=== PATIENT | male | born 1945 | race Caucasian/White ===

== ENCOUNTER 2016-08-27 12:44 | Day surgery (SDC) | payer OTHER ==
[~2016-08-27] VITALS: Ht 185.4 cm; Wt 113.4 kg
[~2016-08-27 12:44] MED LIST: AZU500 PO; GABA-504 PO; HYDR200T5 PO; Lactated Ringer's 1,000 ML IV ONE; METH2.5T PO; OMEP20CA11 PO; OXYC-474 PO; VENL100T3 PO
[2016-08-27] MEDS ORDERED: Phenylephrine/NS-PF 100 mCg/mL 5 mL Syringe IVPUSH ONE (12:45)
[2016-08-27] MEDS ORDERED: Propofol 10,000 mCg/mL 20 mL Inj ONE (12:45)
[2016-08-27 12:58] VITALS: BP 120/77; PULSE 66; RESP 17; O2SAT 98
[2016-08-27] MEDS ORDERED: PRD5T PO (13:02)
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
[2016-08-27 14:08] VITALS: BP 80/43; PULSE 58; RESP 14; O2SAT 100
[2016-08-27 14:14] VITALS: BP 89/51; PULSE 57; RESP 12; O2SAT 98
[2016-08-27 14:21] VITALS: BP 98/63; PULSE 59; RESP 14; O2SAT 97
--- NOTE | 2016-08-27 14:35 | ENDO ---
[address] [address] ENDOSCOPY PROCEDURE PATIENT: FLORENTIN HURST : 1945 MR#: [id number] ADMIT: 08/27/2016 JOB ID: [id number] DATE OF SERVICE: 08/27/2016 TYPE OF OPERATION: Colonoscopy, biopsy. PREOPERATIVE DIAGNOSIS(ES): Family history of colon cancer. POSTOPERATIVE DIAGNOSIS(ES): 1. Suboptimal prep. 2. There was a 3 mm ascending colon polyp, removed by cold biopsy forceps. ANESTHESIA: Monitored anesthesia care. COMPLICATIONS: None. BLOOD LOSS: Minimal. DESCRIPTION OF PROCEDURE: After risks and benefits explained to the patient, informed consent was obtained. After anesthesia administered, colonoscope was then inserted from the rectum to the cecum. Mucosa carefully examined. Prep of the patient was suboptimal. After procedure, the scope was withdrawn and procedure terminated. FINDINGS: Upon inspection of the anus, no masses, hemorrhoids, ulcers, fissures that were seen. Throughout the entire examination, there was scattered liquid stool that was seen throughout the entire colon. Tremendous suction was done during this time. There was also a 3 mm ascending colon polyp, removed by cold biopsy forceps. Retroflexion was normal. IMPRESSION: 1. Suboptimal prep. 2. A 3 mm ascending colon polyp, removed by cold biopsy forceps. RECOMMENDATIONS: Await pathology results. Repeat colonoscopy in five years given family history of colon cancer. Follow up in GI clinic as needed.
--- NOTE | 2016-08-27 15:05 | PCM.ANEP1 ---
Post Anesthesia PACU Phase 1 Assessment Vital Signs Vital Signs Date Time Temp Pulse Resp B/P Pulse Ox O2 Delivery O2 Flow Rate FiO2 08/27/16 14:21 59 14 98/63 97 Room Air 08/27/16 14:14 57 12 89/51 98 Room Air 08/27/16 14:08 58 14 80/43 100 Room Air 08/27/16 12:58 66 17 120/77 98 Room Air Anesthetic Administered: MAC Level of Alertness: Sleepy, easy to arouse Pain: No Nausea or Vomiting: No CV Function & Hydration Stable: Yes Airway Device: Lungs: Clear to Auscultation PACU Phase 2 Assessment Patient Instructions Provided: N/A Ray Payne MD Aug 27, 2016 15:05
--- NOTE | 2016-08-29 15:40 | PATH ---
SURGICAL PATHOLOGY Attending Physician:Winston Samuels MD CASE STATUS: Signed Out PATIENT NAME: FLORENTIN HURST PID: [id number] : 1945 DATE COLLECTED:08/27/2016 00:00 SPECIMEN: Colon, Polyp CLINICAL HISTORY: 1. ASCENDING POLYP FINAL DIAGNOSIS: 1.ASCENDING COLON POLYP: TUBULAR ADENOMA. ICD10 D12.2 GROSS DESCRIPTION: The specimen is received in one formalin filled container labeled with the patient's name, sublabeled "ascending polyp" and consists of a 0.3 x 0.2 x 0.2 CM portion of tissue which is entirely submitted in one cassette. 08/28/2016 DAC MICRO DESCRIPTION: See diagnosis. ICD-9 CODES: CPT CODES: 1: 08572 Electronically Signed Out Sharad Easley MD [facility] [address], [place] [address] Technical component performed at [facility], [address] [place] [address] Ave[address], [place], [address]
== END 2016-08-27 23:59 | disposition home or self-care (01) ==
LOC: END 12:44
PROVIDERS: ATTEND Internal Medicine Gastroenterology
DX: Z12.11 Encounter for screening for malignant neoplasm of colon (principal); Z80.0 Family history of malignant neoplasm of digestive organs; D12.2 Benign neoplasm of ascending colon; I10 Essential (primary) hypertension; M25.512 Pain in left shoulder; M06.9 Rheumatoid arthritis, unspecified; J44.9 Chronic obstructive pulmonary disease, unspecified; F41.9 Anxiety disorder, unspecified; Z87.891 Personal history of nicotine dependence; Z85.118 Personal history of other malignant neoplasm of bronchus and lung; Z85.828 Personal history of other malignant neoplasm of skin; Z79.891 Long term (current) use of opiate analgesic; Z86.14 Personal history of Methicillin resistant Staphylococcus aureus infection
CPT/HCPCS: 45380; J2370; J7120